=== PATIENT | female | born 1985 | race Two or more races ===

== ENCOUNTER 2018-01-06 10:56 | Emergency (ER) | payer SELFPAY ==
[~2018-01-06] VITALS: Ht 167.6 cm; Wt 97.1 kg
[2018-01-06 11:18] VITALS: BP 134/88
[2018-01-06 12:10] VITALS: BP 134/88
--- NOTE | 2018-01-07 08:49 | Emergency Room Report ---
History of Present Illness General Chief Complaint: Headache Source: Patient Present Illness HPI Patient presents with complaints of nausea Headache Patient reports that she feels that there is something wrong with her Feels generally weak Denies any vomiting patient has warmth feeling to the upper chest Denies any flank pain denies any dysuria frequency Patient is also felt some chills denies any neck pain or photophobia otherwise Allergies: Coded Allergies: No Known Allergies (Unverified , 01/06/18) Patient History Past Medical History: see triage record Pertinent Family History: none Last Menstrual Period: last month Now: No Reviewed Nursing Documentation: PMH: Agreed, PSxH: Agreed Nursing Documentation-PMH Past Medical History: No Stated History Review of Systems All Other Systems: negative except mentioned in HPI Physical Exam Vital Signs Date Time Temp Pulse Resp B/P (MAP) Pulse Ox O2 Delivery O2 Flow Rate FiO2 01/06/18 11:08 98.1 84 18 148/90 98 Room Air Sp02 EP Interpretation: reviewed, normal General Appearance: well appearing, no apparent distress Head: normocephalic, atraumatic Eyes: bilateral eye PERRL, bilateral eye EOMI ENT: hearing grossly normal, normal pharynx, TMs + canals normal, uvula midline Neck: full range of motion, supple, no meningismus, no bony tend Respiratory: lungs clear, normal breath sounds, no rhonchi, no respiratory distress, no retraction, no accessory muscle use Cardiovascular #1: normal peripheral pulses, regular rate, rhythm, no edema, no gallop, no JVD, no murmur Gastrointestinal: normal bowel sounds, non tender, soft, no mass, no organomegaly, non-distended, no guarding, no hernia, no pulsatile mass, no rebound Genitourinary: no CVA tenderness Musculoskeletal: normal inspection Neurologic: oriented x3, responsive, taper and floater III-XII nml as tested, motor strength/ tone normal, sensory intact Psychiatric: mood/affect normal Skin: normal color, no rash, warm/dry, palpation normal Lymphatic: normal inspection, no adenopathy Medical Decision Making Diagnostic Impression: Primary Impression: Headache ER Course Patient has a fairly benign medical evaluation However given her complaints and ongoing discomfort Baseline blood work including urine And are ordered At this time the nurse notified me that the patient does not want to have the exams performed There was some financial question As I went to discuss this with the patient She appears to have left AGAINST MEDICAL ADVICE prior to final evaluation Last Vital Signs Date Time Temp Pulse Resp B/P (MAP) Pulse Ox O2 Delivery O2 Flow Rate FiO2 01/06/18 12:10 98.1 82 16 134/88 99 Room Air Status: unchanged Disposition: AGAINST MEDICAL ADVICE Condition: Unknown Scripts No Active Prescriptions or Reported Meds Referrals: NOT CHOSEN IPA/,REFERRING (PCP) ARIA FOX D.O. Jan 07, 2018 08:49
== END 2018-01-06 12:52 | disposition left against medical advice (07) ==
LOC: EMR 11:50
DX: R51 Headache (principal); R11.0 Nausea
CPT/HCPCS: 99282; 99283